=== PATIENT | female | born 1990 | race Caucasian/White ===

== ENCOUNTER → 2018-07-28 14:25 | Emergency (ER) | payer OTHER ==
[~2018-07-28 14:25] MED LIST: Cephalexin CAP* 500 MG PO ONE; HYDROcodone/ACETAMIN 5-325 MG* 1 TAB PO ONE; Hydrocodone/Acetamin 10/325 1 TAB PO PRN; Tetan/Diph/Pertus SYR(Tdap)* 0.5 ML SYR(BOOSTRIX) use SYR IM ONE
[2018-07-28 16:31] VITALS: BP 146/60
--- NOTE | 2018-07-28 16:52 | ED ---
Laceration/Wound HPI - HPI Summary HPI Summary: Patient is a 27-year-old female presenting to the ED with a maceration to the left distal tip of the index finger from a saw blade. Pain is 8/10, throbbing, and bleeding is controlled on arrival. Denies any difficulty with ROM. Denies numbness or tingling except for the most distal portion of the finger. Tetanus is not UTD. - History of Current Complaint Stated Complaint: LEFT POINTER FINGER LAC PER PT Time Seen by Provider: 07/28/18 14:34 Hx Obtained From: Patient Hx Last Menstrual Period: 10/17/15 Mechanism of Injury: Sharp/Blunt Trauma Onset/Duration: Sudden Onset Aggravating: Movement Alleviating: Compression Timing: Constant Onset Severity: Moderate Current Severity: Moderate Pain Intensity: 0 Pain Scale Used: 0-10 Numeric Associated Signs & Symptoms: Negative - Allergy/Home Medications Allergies/Adverse Reactions: Allergies Allergy/AdvReac Type Severity Reaction Status Date / Time No Known Allergies Allergy Verified 07/28/18 14:30 PMH/Surg Hx/FS Hx/Imm Hx Previously Healthy: Yes Endocrine/Hematology History: Denies: Hx Diabetes, Hx Thyroid Disease Cardiovascular History: Denies: Hx Hypertension Psychiatric History: Denies: Hx Anxiety, Hx Depression - Immunization History Date of Tetanus Vaccine: unknown Hx Pertussis Vaccination: No Immunizations Up to Date: Yes Infectious Disease History: No Infectious Disease History: Denies: Traveled Outside the [place] in Last 30 Days - Family History Known Family History: Positive: None - Social History Occupation: Employed Full-time Lives: With Family Alcohol Use: Weekly Hx Substance Use: No Substance Use Type: Reports: None Hx Tobacco Use: Yes Smoking Status (MU): Current Some Day Smoker Review of Systems Constitutional: Negative Negative: Fever, Chills, Fatigue, Skin Diaphoresis Negative: Palpitations, Chest Pain Negative: Shortness Of Breath, Cough Negative: Arthralgia, Myalgia Positive: Other - maceration to the L distal tip of the index finger involving nail Neurological: Negative All Other Systems Reviewed And Are Negative: Yes Physical Exam Triage Information Reviewed: Yes Vital Signs On Initial Exam: Initial Vitals Temp Pulse Resp BP Pulse Ox 98.8 F 53 16 118/62 100 07/28/18 14:27 07/28/18 14:27 07/28/18 14:27 07/28/18 14:27 07/28/18 14:27 Vital Signs Reviewed: Yes Appearance: Positive: Well-Nourished Skin: Positive: Skin Color Reflects Adequate Perfusion, Other - maceration to the L distal tip of the index finger involving nail Head/Face: Positive: Normal Head/Face Inspection Eyes: Positive: EOMI, Conjunctiva Clear Neck: Positive: No Lymphadenopathy Respiratory/Lung Sounds: Positive: Clear to Auscultation, Breath Sounds Present Cardiovascular: Positive: RRR, Pulses are Symmetrical in both Upper and Lower Extremities Musculoskeletal: Positive: Pain @ - finger Neurological: Positive: Sensory/Motor Intact, Alert, Oriented to Person Place, Time, Speech Normal Psychiatric: Positive: Affect/Mood Appropriate AVPU Assessment: Alert Diagnostics - Vital Signs Vital Signs Temp Pulse Resp BP Pulse Ox 07/28/18 16:29 98.9 F 71 17 146/60 100 07/28/18 14:27 98.8 F 53 16 118/62 100 - Laboratory Lab Statement: Any lab studies that have been ordered have been reviewed, and results considered in the medical decision making process. Laceration Repair Course/Dx - Course Course Of Treatment: During this course of treatment, the patient is evaluated for maceration of the distal tip of the left index finger. X-ray obtained which shows an open compound comminuted fracture involving the distal margin of the tuft of the distal phalanx with overlying soft tissue swelling and suggestion of laceration involving the dorsal nail bed and palmar aspects. Irrigated wound well. No sutures required. After cleansing thoroughly, bleeding is well-controlled and xeroform gauze applied and wrapped. Splint applied. Called Dr. Cedeño' office to make appt for this week. Patient has appt at 11am tomorrow with Dr. Cedeño' office. Tetanus updated today. Placed on Keflex and percoset x 3 days. - Differential Dx Differental Diagnoses: Avulsion, Laceration - Clinical Impression Provider Diagnoses: Maceration of skin, Open fracture of tuft of distal phalanx of finger Discharge - Sign-Out/Discharge Documenting (check all that apply): Patient Departure Patient Received Moderate/Deep Sedation with Procedure: No - Discharge Plan Condition: Stable Disposition: HOME Prescriptions: Cephalexin CAP* [Keflex CAP*] 500 mg PO TID #9 cap MDD 3 Hydrocodone/Acetamin 10/325(NF [[place] 10/325 (NF)] 1 tab PO Q6H #12 tab MDD 4 Patient Education Materials: Finger Fracture (ED) Referrals: Delbert Barron MD [Primary Care Provider] - Mark Cedeño MD [Medical Doctor] - Additional Instructions: Keflex three times daily x 3 days Follow up with Dr. Cedeño Hydrocodone as needed for pain control up to four times daily - Billing Disposition and Condition Condition: STABLE Disposition: Home
== END | disposition home or self-care (01) ==
LOC: ED 14:25
DX: S62.631B Displaced fracture of distal phalanx of left index finger, initial encounter for open fracture (principal); W29.8XXA Contact with other powered hand tools and household machinery, initial encounter; Z72.0 Tobacco use; Y92.9 Unspecified place or not applicable; Z23 Encounter for immunization
CPT/HCPCS: 29130; 73140; 90471; 90715; 99283; A9270-GY

== ENCOUNTER 2018-08-16 11:37 | Emergency (ER) | payer OTHER ==
--- NOTE | 2018-08-16 11:46 | UC ---
Lower Extremity/Ankle HPI - HPI Summary HPI Summary: 28 yo female presents with LEFT ankle pain. She tells me that last night she was walking her dog and the dog tugged and pt stumbled and twisted her left ankle. She has been ambulatory and weight bearing since with mild pain. Today she developed swelling. Has elevated and applied ice. Denies numbness or tingling. - History of Current Complaint Stated Complaint: ANKLE INJURY Time Seen by Provider: 08/16/18 11:45 Hx Obtained From: Patient Hx Last Menstrual Period: 10/17/15 Onset/Duration: Sudden Onset Severity Initially: Mild Severity Currently: Mild Pain Intensity: 4 Pain Scale Used: 0-10 Numeric Aggravating Factor(s): Standing, Ambulation Alleviating Factor(s): Rest, Elevation Able to Bear Weight: Yes - Allergies/Home Medications Allergies/Adverse Reactions: Allergies Allergy/AdvReac Type Severity Reaction Status Date / Time No Known Allergies Allergy Verified 08/16/18 11:47 Home Medications: Home Medications NK [No Home Medications Reported] 08/16/18 [History Confirmed 08/16/18] PMH/Surg Hx/FS Hx/Imm Hx - Additional Past Medical History Additional PMH: None - Surgical History Surgical History: None - Family History Known Family History: Positive: None - Social History Lives: With Family Alcohol Use: Weekly Substance Use Type: None Smoking Status (MU): Current Some Day Smoker Review of Systems All Other Systems Reviewed And Are Negative: Yes Constitutional: Positive: Negative Skin: Positive: Negative Respiratory: Positive: Negative Cardiovascular: Positive: Negative Neurovascular: Positive: Negative Musculoskeletal: Positive: Other: - Ankle pain Neurological: Positive: Negative Psychological: Positive: Negative Physical Exam - Summary Physical Exam Summary: GENERAL: NAD. WDWN. No pain distress. SKIN: No rashes, sores, lesions, or open wounds. CHEST: No accessory muscle use. Breathing comfortably and in no distress. CV: Pulses intact PT and DP. Cap refill <2seconds MSK: LEFT ANKLE: Moderate edema at lateral malleolus. Mild TTP at ATFL. FROM. Negative talar tilt. No increased laxity. Negative Gobler test. NEURO: Alert. Sensations intact and symmetric B/L LEs PSYCH: Age appropriate behavior. Triage Information Reviewed: Yes Vital Signs: Vital Signs: Temp Pulse Resp BP Pulse Ox 97.8 F 74 16 116/68 99 08/16/18 11:40 08/16/18 11:40 08/16/18 11:40 08/16/18 11:40 08/16/18 11:40 Vital Signs Reviewed: Yes Lower Extremity Course/Dx - Course Course Of Treatment: XR: IMPRESSION: NONDISPLACED AVULSION FRACTURE FRAGMENT ARISING FROM THE DORSAL NAVICULAR BONE. Discussed results with pt. Will place her him a CAM boot and have her f/u with Orthopedics next week. Advised to RICE and refrain from hiking, climbing, or running until further direction from Orthopedics. - Differential Dx/Diagnosis Provider Diagnosis: Closed navicular fracture of ankle Discharge - Sign-Out/Discharge Documenting (check all that apply): Patient Departure All imaging exams completed and their final reports reviewed: Yes - Discharge Plan Condition: Stable Disposition: HOME Patient Education Materials: Ankle Fracture (DC) Referrals: No Primary Care Phys,NOPCP [Primary Care Provider] - Ladarius Adhikari MD [Medical Doctor] - 3 Days Additional Instructions: If you develop a fever, shortness of breath, chest pain, new or worsening symptoms - please call your PCP or go to the ED immediately. 1) Wear the walking boot as much as possible while active and out of the house 2) Rest, Ice, and elevate your ankle intermittently throughout the day to reduce pain and swelling 3) Please call Orthopedics at the number below to schedule an appointment for early next week for a recheck - Billing Disposition and Condition Condition: STABLE Disposition: Home
[2018-08-16 11:48] VITALS: BP 116/68
== END 2018-08-16 12:40 | disposition home or self-care (01) ==
LOC: UCEAST 11:37
DX: S92.252A Displaced fracture of navicular [scaphoid] of left foot, initial encounter for closed fracture (principal); X58.XXXA Exposure to other specified factors, initial encounter; Y93.K1 Activity, walking an animal; Y92.9 Unspecified place or not applicable; Y99.8 Other external cause status; F17.210 Nicotine dependence, cigarettes, uncomplicated
CPT/HCPCS: 99212; G0463